=== PATIENT | male | born 1950 | race Caucasian/White ===

== ENCOUNTER 2020-01-28 06:10 | Outpatient (CLI) | payer BC, SELFPAY ==
[2020-01-28 17:27] LABS: SARS-CoV-2 RNA PCR Negative
== END 2020-01-28 06:11 | disposition home or self-care (01) ==
LOC: ANHCOVIDDT 06:10
PROVIDERS: PCP Internal Medicine; Visit Provider Internal Medicine Gastroenterology
DX: Z01.812 Encounter for preprocedural laboratory examination (principal); Z11.59 Encounter for screening for other viral diseases
CPT/HCPCS: 87635; C9803; U0003

== ENCOUNTER 2020-01-30 01:56 | Day surgery (SDC) | payer BC, SELFPAY ==
[2020-01-24 14:06] VITALS: BMI 37.9
[2020-01-30 08:47] VITALS: BP 169/88; PULSE 62; RESP 18; TEMP 36.4; O2SAT 98; BMI 38.9
--- NOTE | 2020-01-30 09:01 | WPDANESEPPF ---
Anes - Initial Pre Proc Eval Procedure: Operation Date: 01/30/20 10:00 Proposed Procedures p Esophagogastroduodenoscopy - Pierre Lee MD Date/Time: 01/30/20 09:01 Surgeon: Pierre Lee MD Pre Op Diagnosis: GERD Patient Data Age: 69 Gender: M Height: 6 ft 2 in Weight: 137.8 kg Last Vital Signs Temp 36.4 C L 01/30/20 08:47 Pulse 62 01/30/20 08:47 Resp 18 01/30/20 08:47 BP 169/88 H 01/30/20 08:47 Pulse Ox 98 01/30/20 08:47 Allergies Allergy/AdvReac Type Severity Reaction Status Date / Time Penicillins Allergy Mild Other Verified 01/30/20 08:46 Home Medications Medication Instructions Recorded Confirmed Type atenolol 100 mg tablet 100 mg PO DAILY #90 tablet 01/17/20 01/24/20 Rx linagliptin 5 mg tablet 5 mg PO QAM #90 tablet 01/17/20 01/24/20 Rx omeprazole 40 mg capsule,delayed 40 mg PO DAILY #90 cap 01/17/20 01/24/20 Rx release chlorthalidone 25 mg tablet 25 mg PO DAILY #30 tablet 01/18/20 01/24/20 Rx irbesartan 300 mg tablet 300 mg PO DAILY #90 tablet 01/18/20 01/24/20 Rx minoxidil 2.5 mg tablet 2.5 mg PO BID #180 tablet 01/18/20 01/24/20 Rx leuprolide (6 month) [Lupron Depot 45 mg IM [id number] 01/24/20 01/24/20 History (6 Month)] Patient hx anesthesia problems: none Family hx anesthesia problems: none PMFSH Family History Family History Mother Hypertension Family history of diabetes mellitus in first degree relative Sibling Hypertension Family history of lung cancer Other Diabetes mellitus Social History Social History Smoking status: Former smoker Smoking end date: 07/27/04 Alcohol intake: current Gender identity (if verbalized by the patient): Male Anes - Eval Final PreProcedure Day of Procedure 01/30/20 09:01 Patient weight: morbidly obese Heart: regular rate and rhythm Lungs: clear to auscultation Airway: Mallampati scale class II Neurological: alert and oriented Last oral intake: >/= 8 hours ASA classification: III Emergent: no Anesthetic plan: proceed Anesthesia type and monitoring: general GIVS and standard monitoring Informed Consent: The patient's anesthetic plan and its attendant risks and benefits were discussed with the patient/family/POA. Questions were solicited and answers provided to the satisfaction of the patient/family/POA.
[2020-01-30] MEDS: LACTATED RINGERS 1,000 ML 150 ML IV CONT (09:06)
--- NOTE | 2020-01-30 09:36 | PM.HPGS ---
History of Present Illness History of Present Illness Consent: Risks, benefits, and alternatives have been discussed and questions answered. Patient agrees to proceed with procedure. Chief complaint: GERD Narrative: Jensen Borjas is a 69 year old W male who is at chronic gastroesophageal reflux disease greater than 5 year duration. He has been on Prilosec 40 mg daily for the past year with improvement in his symptoms but not total resolution. He also has a intermittent esophageal spasm. He states he had a cardiac workup that was negative. He denies any dysphagia or odynophagia. No weight loss. [facility] Family History Family History Mother Hypertension Family history of diabetes mellitus in first degree relative Sibling Hypertension Family history of lung cancer Other Diabetes mellitus Social History Social History Smoking status: Former smoker Smoking end date: 07/27/04 Alcohol intake: current Gender identity (if verbalized by the patient): Male Meds Home Medications and Allergies Home Medications Medication Instructions Recorded Confirmed Type atenolol 100 mg tablet 100 mg PO DAILY #90 tablet 01/17/20 01/30/20 Rx linagliptin 5 mg tablet 5 mg PO QAM #90 tablet 01/17/20 01/30/20 Rx omeprazole 40 mg capsule,delayed 40 mg PO DAILY #90 cap 01/17/20 01/30/20 Rx release chlorthalidone 25 mg tablet 25 mg PO DAILY #30 tablet 01/18/20 01/30/20 Rx irbesartan 300 mg tablet 300 mg PO DAILY #90 tablet 01/18/20 01/30/20 Rx minoxidil 2.5 mg tablet 2.5 mg PO BID #180 tablet 01/18/20 01/30/20 Rx leuprolide (6 month) [Lupron Depot 45 mg IM [id number] 01/24/20 01/30/20 History (6 Month)] Allergies Allergy/AdvReac Type Severity Reaction Status Date / Time Penicillins Allergy Mild Other Verified 01/30/20 08:46 Vital Signs Vital Signs - 24 hr 01/30/20 08:47 Temperature 36.4 C L Pulse Rate 62 Respiratory Rate 18 Blood Pressure 169/88 H Pulse Oximetry 98 Exam Const: Orientation/consciousness: patient oriented x3 Resp: Auscultation: clear to auscultation bilaterally Cardio: Rate: regular rate Rhythm: regular rhythm Heart sounds: no murmurs GI: GI Palp: Yes Soft to palpation, No Tenderness to palpation present (GI), Yes No hepatosplenomegaly present and No Palpable mass present Auscultation: normal bowel sounds Neuro: General: patient oriented x3 and no focal motor deficits Extrem: General: no pedal edema Assessment and Plan Additional Plan Gastroscopy for evaluation of chronic gastroesophageal reflux disease and intermittent chest pain most likely secondary to esophageal spasm
[2020-01-30] MEDS: BENZOCAINE (*SP) 60 ML SPRAY CAN (HURRICAINE) 1 SPRAY MUCOUS MEM (10:12)
[2020-01-30 10:23] VITALS: BP 142/75; PULSE 60; RESP 18; O2SAT 98
[2020-01-30 10:33] VITALS: BP 140/72; PULSE 64; RESP 18; O2SAT 98
[2020-01-30 10:43] VITALS: BP 143/78; PULSE 63; RESP 18; O2SAT 98
== END 2020-01-30 10:55 | disposition home or self-care (01) ==
PROVIDERS: PCP Internal Medicine; Visit Provider Internal Medicine Gastroenterology
PROC: 0DJ08ZZ Inspection of Upper Intestinal Tract, Via Natural or Artificial Opening Endoscopic (ICD-10-PCS; CPT 43235; principal; 2020-01-30 10:00)
DX: K21.0 Gastro-esophageal reflux disease with esophagitis (principal); R07.89 Other chest pain; K29.50 Unspecified chronic gastritis without bleeding; E66.01 Morbid (severe) obesity due to excess calories; Z68.39 Body mass index [BMI] 39.0-39.9, adult; Z87.891 Personal history of nicotine dependence
CPT/HCPCS: 43239; 87081; 87635; 88305; C9803; J2704; J7120; U0003

== ENCOUNTER 2020-02-28 07:30 | Outpatient (CLI) | payer BC, SELFPAY ==
--- NOTE | 2020-03-05 07:51 | SLEEP_ITS ---
Home Sleep Test DATE OF STUDY: 02/28/2020 ORDERING PHYSICIAN: Joseph Pham M.D. REASON FOR THIS STUDY: Hypersomnia. HISTORY: The patient is a 69-year-old male, 62 inches tall, weighing 300 pounds with a body mass index of 38.5. He complains of fragmented sleep at night with frequent naps interrupted by episodes of urination. He has prostate cancer and after 45 radiation treatments, he urinates very frequently at night. He occasionally awakens at night with heartburn. He rarely snores occasionally, it is loud enough that others complain about it. He rarely has trouble sleeping with a cold. He does not wake up gasping for breath at night. He occasionally has breathing problems at night reported to him by others. He constantly sweats excessively at night. He does not notice his heart pounding or beating irregularly at night. He frequently falls asleep during the day, rarely involuntarily, never while driving. He does not have loss of muscle tone with strong emotion. He does not have daytime difficulties due to excessive sleepiness. He does not feel paralyzed on waking or falling asleep. He rarely has vivid dreamlike scenes upon awakening or falling asleep. He is not afraid to go to sleep. He rarely has nightmares. He frequently remembers his dreams. He constantly has racing thoughts. He occasionally feels sad or depressed, frequently has anxiety and frequently has muscular tension. He occasionally notices parts of his body jerking, occasionally kicks at night, occasionally has crawly achy feelings in the legs and leg pain during the night. He does not have morning jaw pain. He never grinds his teeth at night. He frequently is bothered by pain during the day. He rarely is awakened by pain at night. He occasionally wakes up in the morning feeling stiff with sore achy muscles and frequently wakes up with pain in the neck and spine. He has fatigue, takes antacids often. Goes to bed at 11:00 p.m., takes a variable amount of time to fall asleep, typically waking 6 times at night. He is staying awake from anywhere from 30 minutes to an hour. During this time, he go to urinate. He estimates 5 hours of sleep at night. He wakes in the morning at 09:00 a.m. Weekend schedule is the same. He does take naps. A short nap is not refreshing. He is drowsy in the morning for 3 hours or longer. He feels better in the morning than other times a day. MEDICAL COMORBIDITIES: Hypertension, prostate cancer, GERD, diabetes, hyperlipidemia. MEDICATIONS: 1. Atenolol 100 mg a day. 2. Irbesartan 300 mg a day. 3. Minoxidil 2.5 mg twice a day. 4. Trajenta 5 mg daily. 5. Omeprazole extended release 40 mg a day. HABITS: Quit tobacco 10 years ago. No caffeine. He does drink alcohol. No recreational drugs. DESCRIPTION OF THE STUDY: On the [place] Sleepiness Scale, score is 10. This was conducted as an unattended type 3 portable home sleep test using 4 channel monitoring with respiratory effort channel, snoring channel, oxygen saturation channel, and heart rate channel. This study was scored using [facility] guidelines. Duration of the study is 8 hours 45 minutes. Apnea-hypopnea index is 29. Oxygen desaturation index is 25.5. Lowest desaturation is 84%. He had 68 apneas. 53% of the apneas, 36 are obstructive, 43% or 29 are central, 3% or 2 apneas were mixed and 1 apnea was unclassified. He had 186 hypopneas, 2964 snoring events and 223 desaturations with 3 minutes or 1% of the study spent below 88% saturation. Heart rate ranged from 46 to 96. IMPRESSION: This home sleep test shows evidence of at least moderate, probably severe, sleep-disordered breathing with a slight preponderance of obstructive greater than central events. He had 53% obstructive apneas in the bal
== END 2020-02-28 07:31 | disposition home or self-care (01) ==
LOC: ANHCSM 07:47
PROVIDERS: PCP Internal Medicine; Visit Provider Internal Medicine
DX: G47.33 Obstructive sleep apnea (adult) (pediatric) (principal)
CPT/HCPCS: 95806

== ENCOUNTER 2020-05-19 00:49 | Outpatient (CLI) | payer BC, SELFPAY ==
[2020-05-19 18:05] LABS: SARS-CoV-2 RNA PCR Negative
== END 2020-05-19 00:50 | disposition home or self-care (01) ==
LOC: ANHCOVIDDT 00:49
PROVIDERS: PCP Internal Medicine; Visit Provider Internal Medicine Critical Care Medicine
DX: Z01.812 Encounter for preprocedural laboratory examination (principal); Z20.828 Contact with and (suspected) exposure to other viral communicable diseases
CPT/HCPCS: 87635; C9803; U0003

== ENCOUNTER 2020-05-22 10:45 | Outpatient (CLI) | payer BC, SELFPAY ==
--- NOTE | 2020-06-25 09:06 | WPDSLEEPSTUD ---
Sleep Study Date of Study: 05/22/20 Ordering Provider: Joseph Pham MD Interpreting Physician: Tracie Martini MD Sleep Study Type: CPAP Titration Height: 1.88 m Weight: 136.078 kg Body Mass Index: 38.5 Neck Circumference: 46.99 cm [place]: 10 Reason for Sleep Study Prior home sleep test on 02/28/2020 with an AHI 29 and lowest desaturation 84%, 53% obstructive apneas and 46% central or mixed apneas. Sleep History Jensen flores a is a 69-year-old male, 62 inches tall, weighing 300 pounds with a body mass index of 38.5. He complains of fragmented sleep at night with frequent naps interrupted by episodes of urination. He has prostate cancer and after 45 radiation treatments, he urinates very frequently at night. He occasionally awakens at night with heartburn. He rarely snores occasionally, it is loud enough that others complain about it. He rarely has trouble sleeping with a cold. He does not wake up gasping for breath at night. He occasionally has breathing problems at night reported to him by others. He constantly sweats excessively at night. He does not notice his heart pounding or beating irregularly at night. He frequently falls asleep during the day, rarely involuntarily, never while driving. He does not have loss of muscle tone with strong emotion. He does not have daytime difficulties due to excessive sleepiness. He does not feel paralyzed on waking or falling asleep. He rarely has vivid dreamlike scenes upon awakening or falling asleep. He is not afraid to go to sleep. He rarely has nightmares. He frequently remembers his dreams. He constantly has racing thoughts. He occasionally feels sad or depressed, frequently has anxiety and frequently has muscular tension. He occasionally notices parts of his body jerking, occasionally kicks at night, occasionally has crawly achy feelings in the legs and leg pain during the night. He does not have morning jaw pain. He never grinds his teeth at night. He frequently is bothered by pain during the day. He rarely is awakened by pain at night. He occasionally wakes up in the morning feeling stiff with sore achy muscles and frequently wakes up with pain in the neck and spine. He has fatigue, takes antacids often. Normal bedtime is 11:00 p.m., takes a variable amount of time to fall asleep, typically waking 6 times at night. He is staying awake from anywhere from 30 minutes to an hour. During this time, he go to urinate. He estimates 5 hours of sleep at night. He wakes in the morning at 09:00 a.m. Weekend schedule is the same. He does take naps. A short nap is not refreshing. He is drowsy in the morning for 3 hours or longer. He feels better in the morning than other times a day. HABITS: Quit tobacco 10 years ago. No caffeine. He does drink alcohol. No recreational drugs. [facility]LY [facility], [facility] Past Medical History Medical History (Updated 06/25/20 @ 09:24 by Tracie Martini MD) Hypercholesterolemia Hypertension Morbid obesity with BMI of 40.0-44.9, adult Obstructive sleep apnea Prostate cancer Family History Family History Mother Hypertension Family history of diabetes mellitus in first degree relative Sibling Hypertension Family history of lung cancer Other Diabetes mellitus Social History Social History Smoking status: Former smoker Smoking end date: 07/27/04 Alcohol intake: current Gender identity (if verbalized by the patient): Male Medications Home Medications Medication Instructions Recorded Confirmed Type atenolol 100 mg tablet 100 mg PO DAILY #90 tablet 01/17/20 05/11/20 Rx omeprazole 40 mg capsule,delayed 40 mg PO DAILY #90 cap 01/17/20 05/11/20 Rx release irbesartan 300 mg tablet 300 mg PO DAILY #90 tablet 01/18/20 05/11/20 Rx Lupron Depot (6 Month) 45 mg IM [id number] 01/24/20 05/11/20 History linagliptin 5 mg tablet 5 mg PO
[2020-06-25 09:29] VITALS: BMI 38.5
== END 2020-05-22 10:46 | disposition home or self-care (01) ==
LOC: ANHCSM 10:45
PROVIDERS: PCP Internal Medicine; Visit Provider Internal Medicine
DX: G47.33 Obstructive sleep apnea (adult) (pediatric) (principal)
CPT/HCPCS: 95811

== ENCOUNTER 2021-04-10 01:00 | Day surgery (SDC) | payer MEDICARE, BC, SELFPAY ==
[2021-03-28 12:35] VITALS: BMI 41.0
--- NOTE | 2021-04-09 19:20 | PM.HPGS ---
History of Present Illness History of Present Illness Consent: Risks, benefits, and alternatives have been discussed and questions answered. Patient agrees to proceed with procedure. Chief complaint: hx of colon polyps Narrative: Jensen Borjas is a 70 year old male with a history of polyps, here for colon cancer screening Review of Systems Review of Systems: All systems reviewed & are unremarkable except as noted in HPI and below PMFSH Past Medical History Medical History Diabetes type 2, controlled Hypercholesterolemia Hypertension Morbid obesity with BMI of 40.0-44.9, adult Obstructive sleep apnea Prostate cancer Family History Family History Mother Hypertension Family history of diabetes mellitus in first degree relative Sibling Hypertension Family history of lung cancer Other Diabetes mellitus Social History Social History Smoking packs per day: 0.5 Smoking cigarettes per day: 10.0 Years smoked: 30 Smoking pack-years: 15.00 Smoking status: Former smoker Tobacco type: cigarettes and cigars Second hand tobacco smoke exposure: No Smoking end date: 07/27/04 Alcohol intake: current Drinks per week: 4 Living arrangements: with family Gender identity (if verbalized by the patient): Male Spiritual care concerns: No Meds Home Medications and Allergies Home Medications Medication Instructions Recorded Confirmed Type blood sugar diagnostic #100 ea 08/15/20 02/25/21 Rx lancets #100 ea 08/15/20 02/25/21 Rx semaglutide 3 mg tablet 3 mg PO DAILY 30 Days #30 tablet 11/14/20 04/10/21 Rx atenolol 100 mg tablet 100 mg PO DAILY #90 tablet 11/21/20 04/10/21 Rx irbesartan 300 mg tablet 300 mg PO DAILY #90 tablet 11/21/20 04/10/21 Rx amlodipine 10 mg tablet 10 mg PO DAILY #90 tablet 02/12/21 04/10/21 Rx rosuvastatin 20 mg tablet 20 mg PO DAILY #90 tablet 02/21/21 04/10/21 Rx Allergies Allergy/AdvReac Type Severity Reaction Status Date / Time Penicillins Allergy Mild Other Verified 04/10/21 10:05 Exam Resp: Auscultation: clear to auscultation bilaterally Cardio: Rate: regular rate Rhythm: regular rhythm GI: GI Palp: Yes Soft to palpation and No Tenderness to palpation present (GI) Assessment and Plan Assessment and plan (1) Colon cancer screening: Code(s): Z12.11 - Encounter for screening for malignant neoplasm of colon Status: Acute Assessment and Plan: Colonoscopy with possible biopsy or polypectomy or cautery or injection of substances.
--- NOTE | 2021-04-10 08:02 | WPDANESEPPF ---
Anes - Initial Pre Proc Eval Procedure: Operation Date: 04/10/21 11:30 Proposed Procedures p Screening Colonoscopy - Rudy Price MD Date/Time: 04/10/21 08:02 Surgeon: Rudy Price MD Pre Op Diagnosis: hx of colon polyps Patient Data Age: 70 Gender: M Height: 1.88 m Weight: 145 kg Allergies Allergy/AdvReac Type Severity Reaction Status Date / Time Penicillins Allergy Mild Other Verified 04/10/21 10:05 Home Medications Medication Instructions Recorded Confirmed Type blood sugar diagnostic #100 ea 08/15/20 02/25/21 Rx lancets #100 ea 08/15/20 02/25/21 Rx semaglutide 3 mg tablet 3 mg PO DAILY 30 Days #30 tablet 11/14/20 04/10/21 Rx atenolol 100 mg tablet 100 mg PO DAILY #90 tablet 11/21/20 04/10/21 Rx irbesartan 300 mg tablet 300 mg PO DAILY #90 tablet 11/21/20 04/10/21 Rx amlodipine 10 mg tablet 10 mg PO DAILY #90 tablet 02/12/21 04/10/21 Rx rosuvastatin 20 mg tablet 20 mg PO DAILY #90 tablet 02/21/21 04/10/21 Rx Patient hx anesthesia problems: none Family hx anesthesia problems: none PMFSH Past Medical History Medical History (Updated 04/10/21 @ 08:03 by Harshil Corley DO) Diabetes type 2, controlled Hypercholesterolemia Hypertension Morbid obesity with BMI of 40.0-44.9, adult Obstructive sleep apnea Prostate cancer Family History Family History Mother Hypertension Family history of diabetes mellitus in first degree relative Sibling Hypertension Family history of lung cancer Other Diabetes mellitus Social History Social History Smoking packs per day: 0.5 Smoking cigarettes per day: 10.0 Years smoked: 30 Smoking pack-years: 15.00 Smoking status: Former smoker Tobacco type: cigarettes and cigars Second hand tobacco smoke exposure: No Smoking end date: 07/27/04 Alcohol intake: current Drinks per week: 4 Living arrangements: with family Gender identity (if verbalized by the patient): Male Spiritual care concerns: No Anes - Eval Final PreProcedure Day of Procedure 04/10/21 08:02 Patient weight: morbidly obese Heart: regular rate and rhythm Lungs: clear to auscultation and normal air movement Airway: Mallampati scale class III Neurological: alert and oriented Last oral intake: >/= 8 hours ASA classification: III Emergent: no Anesthetic plan: proceed Anesthesia type and monitoring: general GIVS and standard monitoring Informed Consent: The patient's anesthetic plan and its attendant risks and benefits were discussed with the patient/family/POA. Questions were solicited and answers provided to the satisfaction of the patient/family/POA.
[2021-04-10 10:06] VITALS: BP 145/80; PULSE 70; RESP 20; TEMP 36.1; O2SAT 98
[2021-04-10] MEDS: LACTATED RINGERS 1,000 ML 150 ML IV CONT (10:10)
[2021-04-10 10:17] LABS: Glucose Point of Care 180 mg/dl (65-105)
[2021-04-10 11:07] VITALS: BP 130/75; PULSE 60; RESP 19; O2SAT 96
[2021-04-10 11:17] VITALS: BP 124/81; PULSE 61; RESP 18; O2SAT 96
[2021-04-10 11:27] VITALS: BP 137/78; PULSE 65; RESP 22; O2SAT 98
== END 2021-04-10 11:35 | disposition home or self-care (01) ==
PROVIDERS: PCP Internal Medicine; Visit Provider Internal Medicine Gastroenterology
PROC: 0DJD8ZZ Inspection of Lower Intestinal Tract, Via Natural or Artificial Opening Endoscopic (ICD-10-PCS; CPT 45378; principal; 2021-04-10 11:30)
DX: Z12.11 Encounter for screening for malignant neoplasm of colon (principal); K57.30 Diverticulosis of large intestine without perforation or abscess without bleeding; Z86.010 Personal history of colon polyps; E11.9 Type 2 diabetes mellitus without complications; I10 Essential (primary) hypertension; E78.00 Pure hypercholesterolemia, unspecified; G47.33 Obstructive sleep apnea (adult) (pediatric); Z85.46 Personal history of malignant neoplasm of prostate; Z79.84 Long term (current) use of oral hypoglycemic drugs; E66.01 Morbid (severe) obesity due to excess calories; Z68.41 Body mass index [BMI] 40.0-44.9, adult; Z87.891 Personal history of nicotine dependence
CPT/HCPCS: G0105; 82948; J2704; J7120

== ENCOUNTER → 2021-08-28 09:27 | Outpatient (CLI) | payer MEDICARE, SELFPAY ==
--- NOTE | ~2021-08-28 | XR_ITS ---
EXAMINATION: [id number] DATE: 08/28/2021 09:44 INDICATION: Cervical radiculopathy. TECHNIQUE: 4 views of cervical spine were obtained. COMPARISON: Cervical spine MRI 07/07/2016 FINDINGS: There is 4 degrees levocurvature of cervical spine. There is 2 mm retrolisthesis of C5 on C 6. There is mild chronic anterior wedging of C4 and C5 vertebral bodies. There is severely decreased disc height at C5-C6 and C6-C7. There is multilevel uncovertebral joint osteoarthritis, severe on the right and C3-C4 bilaterally at C5-C6 and C6-C7. There is multilevel moderate to severe facet joint o steomyelitis. There is mild central canal stenosis at C5-C6 and C6-C7. No prevertebral soft tissue sw elling. IMPRESSION: 1. Severe cervical spondylosis. Reviewed, dictated and finalized at location E. [employer]
== END ==
PROVIDERS: PCP Internal Medicine; Visit Provider Internal Medicine
DX: M47.812 Spondylosis without myelopathy or radiculopathy, cervical region (principal)
CPT/HCPCS: 72040

== ENCOUNTER → 2021-09-06 13:29 | Outpatient (CLI) | payer MEDICARE, BC, SELFPAY ==
--- NOTE | ~2021-09-06 | MR_ITS ---
EXAMINATION: MR cervical spine wo/w con DATE: 09/06/2021 14:52 INDICATION: Neck and bilateral shoulder pain. TECHNIQUE: Magnetic resonance imaging (MRI) of the cervical spine was performed without and with 20 m L MultiHance intravenous contrast. Sequences included sagittal and axial T2-weighted FSE, sagittal ST IR FSE, sagittal T2-weighted FS FSE, and sagittal and axial T1-weighted FSE. Postcontrast sequences i ncluded sagittal and axial T1-weighted FS FSE. COMPARISON: Cervical spine MRI 07/07/2016 FINDINGS: There is 2 mm retrolisthesis of C5 on C6. There is mild chronic anterior wedging of C4 and C5 vertebral bodies. There is mildly decreased disc height at C3-C4 and severely decreased disc heigh t at C5-C6 and C6-C7 with endplate remodeling. The spinal cord signal intensity is normal. The follow ing disc levels are specifically discussed: C2-C3: The disc does not extend beyond the endplate margin. There is moderate right and mild left unc overtebral joint osteoarthritis. There is severe right and mild left facet joint osteoarthritis. Ther e is mild right neural foraminal stenosis. There is no central canal stenosis. C3-C4: The disc is bulging. There is moderate bilateral uncovertebral joint osteoarthritis. There is moderate right and severe left facet joint osteoarthritis. There is moderate bilateral neural foramin al stenosis. There is mild central canal stenosis. C4-C5: The disc is bulging. There is mild bilateral uncovertebral joint osteoarthritis. There is mild right and severe left facet joint osteoarthritis. There is mild bilateral neural foraminal stenosis. There is no central canal stenosis. C5-C6: The disc is bulging. There is severe bilateral uncovertebral joint osteoarthritis. There is no facet joint osteoarthritis. There is moderate bilateral neural foraminal stenosis. There is no centr al canal stenosis. C6-C7: The disc is bulging. There is severe bilateral uncovertebral joint osteoarthritis. There is mo derate right and mild left facet joint osteoarthritis. There is moderate right and mild left neural f oraminal stenosis. There is no central canal stenosis. C7-T1: The disc does not extend beyond the endplate margin. There is no uncovertebral joint osteoarth ritis. There is mild bilateral facet joint osteoarthritis. There is no neural foraminal stenosis. The re is no central canal stenosis. IMPRESSION: 1. Severe cervical spondylosis, mildly worsened from 07/07/2016. Reviewed, dictated and finalized at location E. [employer]
== END ==
PROVIDERS: PCP Internal Medicine; Visit Provider Internal Medicine
DX: M47.22 Other spondylosis with radiculopathy, cervical region (principal)
CPT/HCPCS: 72156; A9577

== ENCOUNTER 2022-07-14 12:31 | Outpatient (CLI) | payer MEDICARE, BC, SELFPAY ==
--- NOTE | ~2022-07-14 | PE_ITS ---
EXAMINATION: PET_PETPSMAST_PT DATE: 07/14/2022 15:11 INDICATION: Prostate cancer TECHNIQUE: 9.532 mCi of pipflufolastat F-18 (18-F-DCFPyL) was administered i.v. Low dose computed to mography (CT) images were acquired from the base of the brain to the base of the brain to the proxima l thighs for attenuation correction and anatomic localization. Positron emission tomography (PET) eliza ges were acquired in the same distribution beginning 92 minutes after injection. Images including fus ed PET/CT images were reconstructed in axial, coronal, and sagittal planes. Automated exposure contro l technique was employed. The dose-length product was 1093.56mGy-cm. COMPARISON: None FINDINGS: Head/neck: Typical pattern of symmetric physiologic increased activity in the lacrimal, parotid and submandibula r glands as well as along the mucosa of the oropharynx, nasopharynx and hypopharynx. No pathologicall y enlarged cervical lymphadenopathy or suspicious foci of increased uptake in the visualized head or neck. Chest: There is approximately 2.2 x 1.6 cm peripheral wedge-shaped region of groundglass opacity in the late ral basilar segment of the right lower lobe which without abnormal PSMA activity. Mild discoid atelec tasis in the anterobasilar segment of the left lower lobe. No pleural effusion. Heart size is normal. No pericardial effusion. Thoracic aorta is normal in caliber. No pathologically enlarged or PSMA av id thoracic lymphadenopathy. Abdomen/pelvis/proximal thighs: Physiologic renal accumulation and excretion of activity in the kidneys, bladder and along portions o f ureters. Normal degree and slightly heterogenous pattern of increased uptake throughout the liver a nd spleen without radiologic correlate or dominant PSMA avid lesion. The gallbladder, pancreas and bi lateral adrenal glands are normal. Moderate uptake scattered throughout the bowels with typical duode nal predominance and without radiologic correlate, also likely physiologic. There is a small focus of prominent increased activity at the left posterior margin of the prostate with maximal SUV of 16.5 w hich likely related to flex the site of a reported prostate cancer. There are several high attenuatio n likely brachial therapy seeds in the prostate. No other abnormal foci of increased uptake or pathol ogically enlarged lymphadenopathy in the abdomen, pelvis or proximal thighs. Musculoskeletal: L4-L5 combined instrumented anterior and posterior spinal fusion with interbody fusion device and rebecca ateral vertical ronny and pedicle screw fixation. Mild thoracolumbar dextrocurvature. No suspicious lyt ic, blastic or PSMA avid bone lesions. IMPRESSION: 1. Small focus of prominent PSMA activity at the left posterior margin of the prostate suspicious for primary prostate cancer which could be either new or recurrent. Correlate with prior oncologic histo ry. No evident metastatic disease. 2. 2.2 x 1.6 cm masslike peripheral wedge-shaped groundglass opacity at the right lower lobe with dif ferential which would include atelectasis/scarring, pneumonia, pulmonary infarct or primary bronchoge carrie carcinoma. Correlate for any outside imaging more recent than the chest CT from 05/13/2018 and wo uld consider further evaluation with 1-3 month follow-up chest CT. Reviewed, dictated and finalized at location B. [facility] IMPRESSION: 1. Small focus of prominent PSMA activity at the left posterior margin of the p rostate suspicious for primary prostate cancer which could be either new or rec urrent. Correlate with prior oncologic history. No evident metastatic disease. 2. 2.2 x 1.6 cm masslike peripheral wedge-shaped groundglass opacity at the rig ht lower lobe with differential which would include atelectasis/scarring, pneum onia, pulmonary
== END 2022-07-14 12:32 | disposition home or self-care (01) ==
PROVIDERS: PCP Internal Medicine; Visit Provider Urology
DX: C61 Malignant neoplasm of prostate (principal)
CPT/HCPCS: 78815; A9595

== ENCOUNTER → 2022-10-30 09:38 | Outpatient (CLI) | payer MEDICARE, BC, SELFPAY ==
--- NOTE | ~2022-10-30 | CT_ITS ---
EXAMINATION: CT diagnostic chest wo con DATE: 10/30/2022 09:55 INDICATION: Lung nodule prostate TECHNIQUE: Computed tomography (CT) of the chest was performed without intravenous contrast. The dose -length product (DLP) was 788.25 mGy-cm. Automated exposure control and iterative reconstruction tech [employer] were employed. COMPARISON: 07/14/2022; 05/13/2018 FINDINGS: There is a 2.2 x 1.5 cm cystic lesion in the lateral segment of the right lower lobe. There is mild irregular wall thickening which measures up to 6 mm. The lungs are free of acute opacities. No pleural effusion or pneumothorax. There is moderate bilateral gynecomastia. No pathologically enla rged thoracic lymph nodes are identified. The heart size is normal. There is mild thoracic spondylosi s. IMPRESSION: 1. Atypical, thick-walled pulmonary cyst in the right lower lobe which could reflect infection or mal ignancy (primary versus metastatic). CT-guided biopsy is recommended. Reviewed, dictated and finalized at location L. IMPRESSION: 1. Atypical, thick-walled pulmonary cyst in the right lower lobe which could re flect infection or malignancy (primary versus metastatic). CT-guided biopsy is recommended.
== END ==
PROVIDERS: PCP Internal Medicine; Visit Provider Urology
DX: C61 Malignant neoplasm of prostate (principal)
CPT/HCPCS: 71250

== ENCOUNTER 2022-12-04 02:13 | Outpatient (CLI) | payer MEDICARE, BC, SELFPAY ==
--- NOTE | 2022-11-26 13:24 | PC.NURSE ---
Pre Radiology instructions Report to the outpatient [facility] on date 12/04/22 at time _0900 for procedure Time: 1100____ YOU MAY BE MONITORED AT HOSPITAL FOR UP TO 4 HOURS AFTER YOUR PROCEDURE. A visitor will be allowed to accompany the patient into the hospital. You and your visitor will be asked to self-screen and do not enter if you have any COVID symptoms. A mask is OPTIONAL within the hospital. Patients are to have no food or drink 6 hours prior to procedure time Driving will be restricted after the procedure, you must have a person to drive you home. Labs will be drawn in preop area and once reviewed, you will be taken to radiology area for procedure. When the procedure is completed, you will be taken to outpatient where you will be monitored for several hours. You may have one visitor in this area. Other than holding anti-coagulants, patient may take other medication(s) as scheduled. Prior to your appointment date patients are instructed to hold anti-coagulants after discussing with ordering provider to stop. If unable to discontinue anti-coagulants please notify radiologist. ? No aspirin or warfarin (Coumadin) for 7 days prior to the procedure. ? No clopidogrel (Plavix), ticagrelor (Brilinta), prasugrel (Effient) or dabigatran (Pradaxa) for 5 days prior to the procedure. ? No rivaroxaban (Xarelto), apixaban (Eliquis), dipyridamole (Aggrenox or Persantine) or cilostazol (Pletal) for 2 days prior to the procedure. Medications to discontinue per physician: ___NONE Date to take last dose: Please leave all valuables, including medications, at home the day of procedure. The hospital will not accept responsibility for valuables. Wear comfortable, loose fitting clothing.? Follow any additional instructions given to you from ordering provider. Telephone instructions given to ___PT and asked if any additional questions and then verbalized understanding. Patient advised to call scheduling provider office or registration scheduling [phone] if any additional questions.
[2022-11-26 13:27] VITALS: BMI 42.3
[2022-12-04] VITALS (15 sets, daily range): BP systolic 114–170; BP diastolic 73–88; PULSE 57–65; RESP 14–20; TEMP 36.6; O2SAT 92–99
--- NOTE | ~2022-12-04 | XR_ITS ---
EXAMINATION: XR chest 1V DATE: 12/04/2022 11:39 INDICATION: Status post percutaneous lung biopsy TECHNIQUE: frontal and lateral views of the chest were obtained. COMPARISON: 11/04/2017 FINDINGS: Very small right apical pneumothorax. No focal airspace opacities, pulmonary edema, pleural effusion or pneumothorax. The cardiomediastinal silhouette is normal. IMPRESSION: 1. Small right apical pneumothorax post percutaneous biopsy of a right lower lobe nodule which is con cerning for premature bronchial carcinoma. Reviewed, dictated and finalized at location A. IMPRESSION: 1. Small right apical pneumothorax post percutaneous biopsy of a right lower lo be nodule which is concerning for premature bronchial carcinoma.
--- NOTE | ~2022-12-04 | XR_ITS ---
EXAMINATION: XR chest 1V portable DATE: 12/04/2022 12:30 INDICATION: Status post percutaneous right lung biopsy. TECHNIQUE: frontal view of the chest was obtained. COMPARISON: Chest radiograph dated 12/04/2022 FINDINGS: Previously seen small right pneumothorax has resolved. No focal airspace opacities, pulmonary edema, pleural effusion or pneumothorax. The cardiomediastinal silhouette is normal. IMPRESSION: 1. Resolution of prior very small right pneumothorax. Reviewed, dictated and finalized at location A.
--- NOTE | ~2022-12-04 | XR_ITS ---
EXAMINATION: XR chest 1V portable DATE: 12/04/2022 14:52 INDICATION: Status post percutaneous right lung biopsy TECHNIQUE: frontal view of the chest was obtained. COMPARISON: Chest radiograph dated 12/04/2022 at 12:27 PM FINDINGS: No focal airspace opacities, pulmonary edema, pleural effusion or pneumothorax. The biopsied right lo wer lobe nodule is likely obscured by the right hemidiaphragm. Visualized bones and soft tissues are unremarkable. IMPRESSION: 1. No pleural effusion or pneumothorax post percutaneous biopsy of a right lower lobe nodule which is concerning for primary bronchogenic carcinoma. Reviewed, dictated and finalized at location A. IMPRESSION: 1. No pleural effusion or pneumothorax post percutaneous biopsy of a right lowe r lobe nodule which is concerning for primary bronchogenic carcinoma.
--- NOTE | ~2022-12-04 | CT_ITS ---
EXAMINATION: CT biopsy lung w/imaging DATE: 12/04/2022 11:38 INDICATION: Thick-walled cavitary lesion in the right lower lobe. TECHNIQUE: The procedure including the risks and benefits was discussed with the patient. Risks discu ssed included infection, approximately 1/20 risk of symptomatic hemorrhage beyond mild hemoptysis, ap proximately 1/3 risk of pneumothorax, and approximately 1/10 risk of pneumothorax severe enough to wa rrant chest tube placement. The patient understood the risks and agreed to proceed. The patient was p laced prone. The skin overlying the inferior posterior right hemithorax was prepped and draped in st erile fashion. Anesthetic was administered with 1% lidocaine subcutaneously. A 19 gauge outer needl e was advanced under CT guidance to the lesion of interest. A 20 gauge core biopsy needle was then us ed to obtain 6 core biopsy specimens. The needle was removed and the entry site was cleaned and dress ed. There were no immediate complications. The dose-length product was 158.74 mGy-cm. FINDINGS: CT images demonstrate the outer needle tip adjacent to a 2.2 cm thick-walled cavitary lesio n in the posterior basilar segment of the right lower lobe. IMPRESSION: 1. Successful CT-guided biopsy of a 2.2 cm thick-walled cavitary lesion in the right lower lobe. Reviewed, dictated and finalized at location A.
[2022-12-04 10:24] LABS: Mean Platelet Volume 10.6 fl (7.4-10.4); Platelet Count Result 203 k/mm3 (150-375)
[2022-12-04 10:33] LABS: INR 0.9; Prothrombin Time 12.7 Seconds (11.1-14.7)
== END 2022-12-04 15:17 | disposition home or self-care (01) ==
PROVIDERS: PCP Internal Medicine; Referring Provider Nurse Practitioner Family; Visit Provider Radiology Diagnostic Radiology
PROC: BB24ZZZ Computerized Tomography (CT Scan) of Bilateral Lungs (ICD-10-PCS; CPT 32408; principal; 2022-12-04 11:00)
DX: J98.4 Other disorders of lung (principal); C34.31 Malignant neoplasm of lower lobe, right bronchus or lung
CPT/HCPCS: 32408; 36415; 71045; 81210; 81235; 81276; 85049; 85610; 88271; 88274; 88275; 88305; 88342; 88360; 88381